=== PATIENT | male | born 1955 ===

== ENCOUNTER 2024-12-13 14:23 | Inpatient (IN) | payer MEDICARE ==
[~2024-12-13] VITALS: Ht 185.4 cm; Wt 98.4 kg
[2024-12-13] MEDS: DEXTROSE 50%-WATER 25 GM/50 ML SYRINGE IVP ONE ×4 (15:15→23:11)
[2024-12-13 15:50] LABS: PLATELET COUNT (AUTO) 154 K/uL (150-450); RED BLOOD CELL COUNT(AUTO) 5.41 MIL/uL (4.50-5.90); RED CELL DISTRIBUTION WIDTH 17.3 % (11.5-14.5); WHITE BLOOD COUNT (AUTO) 8.3 K/uL (4.5-11.0)
[2024-12-13 15:58] LABS: CALCIUM, TOTAL 8.7 mg/dL (8.8-10.5); CREATININE 1.48 mg/dL (0.60-1.30); GLOMERULAR FILTR. RATE CALC 47 mL/min (>60); SODIUM SERUM 142 mmol/L (136-145); UREA NITROGEN, BLOOD 53 mg/dL (7-18)
[2024-12-13 16:01] LABS: ASPARTATE AMINOTRANSFERASE 54.0 U/L (15-37); CREATINE KINASE, TOTAL ONLY 300.0 U/L (39-308); TOTAL PROTEIN, SERUM 6.0 g/dL (6.4-8.2)
[2024-12-13 16:10] LABS: GLUCOSE,RANDOM 33 mg/dL (70-110)
[2024-12-13 16:13] LABS: TROPONIN I-HIGH SENSITIVITY 118 ng/L (<76)
[2024-12-13] MEDS ORDERED: SODIUM CHLORIDE 0.9% 1,000 ML IV ONE (16:15)
[2024-12-13 17:26] LABS: GLUCOMETER DEV NAME(LOC) ER.7; GLUCOSE,POINT OF CARE 75 MG/DL (70-110)
[2024-12-13 17:40] LABS: CALCIUM, TOTAL 8.3 mg/dL (8.8-10.5); CREATININE 1.71 mg/dL (0.60-1.30); GLOMERULAR FILTR. RATE CALC 40.0 mL/min (>60); GLUCOSE,RANDOM 56.0 mg/dL (70-110); SODIUM SERUM 142.0 mmol/L (136-145); UREA NITROGEN, BLOOD 56.0 mg/dL (7-18)
[2024-12-13 17:50] LABS: TROPONIN I-HIGH SENSITIVITY 95 ng/L (<76)
[2024-12-13 17:52] LABS: LACTIC ACID 3.2 mmol/L (0.4-2.0)
[2024-12-13 17:55] LABS: ALCOHOL, BLOOD (SERUM) < 3 mg/dL (0-10)
[2024-12-13 18:00] LABS: GLUCOMETER DEV NAME(LOC) ER.7; GLUCOSE,POINT OF CARE 62 MG/DL (70-110)
[2024-12-13] MEDS ORDERED: BISACODYL 10 MG RECTAL RECTAL SUPPOSITORY PR PRN (18:00)
[2024-12-13] MEDS ORDERED: MAGNESIUM HYDROXIDE SUSPENSION 30 ML UDCUP PO PRN (18:00)
[2024-12-13] MEDS ORDERED: ONDANSETRON HCL 4 MG/2 ML VIAL IVP PRN (18:00)
[2024-12-13 18:31] LABS: GLUCOMETER DEV NAME(LOC) ER.7; GLUCOSE,POINT OF CARE 118 MG/DL (70-110)
[2024-12-13] MEDS: SODIUM CHLORIDE 0.9% 1,000 ML IV ONE (19:35)
[2024-12-13 19:36] LABS: GLUCOMETER DEV NAME(LOC) ER.7; GLUCOSE,POINT OF CARE 64 MG/DL (70-110)
[2024-12-13] MEDS: CefTRIAXone 1 GM/DEXTROSE 50 ML IV ONE (19:38)
[2024-12-13 20:46] LABS: GLUCOMETER DEV NAME(LOC) ER.7; GLUCOSE,POINT OF CARE 94 MG/DL (70-110)
[2024-12-13] MEDS: SODIUM CHLORIDE 77 MEQ in DEXTROSE 10%-WATER 1,000 ML IV ONE (20:50)
[2024-12-13 22:15] LABS: GLUCOMETER DEV NAME(LOC) ER.7; GLUCOSE,POINT OF CARE 91 MG/DL (70-110)
[2024-12-13 23:11] LABS: GLUCOMETER DEV NAME(LOC) ER.7; GLUCOSE,POINT OF CARE 65 MG/DL (70-110)
[2024-12-13 23:23] LABS: ABG BASE EXCESS -15.9 mmol/L (-2.0-3.0); ABG CARBOXYHEMOGLOBIN 1.2 % (0.5-1.5); ABG HCO3 14.6 mmol/L (21.0-28.0); ABG METHEMOGLOBIN 0.8 % (0.0-1.5); ABG OXYGEN CONTENT 23.0 mL/dL (15.0-23.0); ABG OXYGEN SATURATION 98.6 % (94.0-98.0); ABG OXYHEMOGLOBIN 96.6 % (94.0-98.0); ABG PCO2 21 mmHg (32.0-48.0); ABG PH 7.317 (7.350-7.450); ABG TOTAL HEMOGLOBIN 16.8 G/dL (13.5-17.5); FRACTIONATED INSPIRED OXYGEN 32.0 % (21-100.0); PO2, ARTERIAL BG 124.1 mmHg (83.0-108.0); SOURCE, BLOOD GAS ARTERIAL; TEMPERATURE, FAHRENHEIT, BG 98.3 FAHREN (96.0-98.6)
[2024-12-13 23:24] LABS: ABG A-A DIFF O2 80.3 mmHg (10-20.0); ALLEN TEST, BLOOD GAS Positive; FLOW, BLOOD GAS 3.00 L/min (0.00-15.00); O2 DEVICE,BLOOD GAS CANNULA (ROOM AIR); SITE, BLOOD GAS LFT RADIAL
[2024-12-13] MEDS: HEPARIN SODIUM,PORCINE 5,000 UNITS/ML VIAL SQ SCH (23:55)
[2024-12-14] VITALS (9 sets, daily range): BP systolic 95–115; BP diastolic 51–76; PULSE 62–144; RESP 14–29; TEMP 94–98.1; O2SAT 90–100
[2024-12-14 00:06] LABS: GLUCOMETER DEV NAME(LOC) ER.7; GLUCOSE,POINT OF CARE 131 MG/DL (70-110)
[2024-12-14 05:50] LABS: PLATELET COUNT (AUTO) 119 K/uL (150-450); RED BLOOD CELL COUNT(AUTO) 4.55 MIL/uL (4.50-5.90); RED CELL DISTRIBUTION WIDTH 16.6 % (11.5-14.5); WHITE BLOOD COUNT (AUTO) 6.0 K/uL (4.5-11.0)
[2024-12-14 05:52] LABS: CALCIUM, TOTAL 7.8 mg/dL (8.8-10.5); CREATININE 1.42 mg/dL (0.60-1.30); GLOMERULAR FILTR. RATE CALC 49.0 mL/min (>60); GLUCOSE,RANDOM 96.0 mg/dL (70-110); SODIUM SERUM 144.0 mmol/L (136-145); UREA NITROGEN, BLOOD 57.0 mg/dL (7-18)
[2024-12-14 06:57] LABS: APPEARANCE,URINE HAZY (CLEAR); GLUCOSE, URINE (UA) NEGATIVE (NEGATIVE); LEUKOCYTE ESTERASE ,URINE TRACE (NEGATIVE); NITRATE,URINE NEGATIVE (NEGATIVE); OCCULT BLOOD,URINE NEGATIVE (NEGATIVE); SPECIFIC GRAVITIY, URINE 1.027 (1.003-1.030)
[2024-12-14 07:17] LABS: SULFOSALICYLIC ACID,URINE 2+ (Negative)
[2024-12-14 07:19] LABS: FINE GRANULAR CASTS,URINE 0-2 /LPF (None Seen); SQUAMOUS EPITHELIAL CELL,UR Moderate /LPF (None Seen)
[2024-12-14] MEDS: PANTOPRAZOLE SODIUM 40 MG DR TABLET PO SCH (08:14)
[2024-12-14 08:56] LABS: GLUCOMETER DEV NAME(LOC) ICU.S7; GLUCOSE,POINT OF CARE 82 MG/DL (70-110)
[2024-12-14 08:56] LABS: GLUCOMETER DEV NAME(LOC) ICU.S7; GLUCOSE,POINT OF CARE 87 MG/DL (70-110)
[2024-12-14 08:56] LABS: GLUCOMETER DEV NAME(LOC) ICU.S7; GLUCOSE,POINT OF CARE 79 MG/DL (70-110)
[2024-12-14 08:56] LABS: GLUCOMETER DEV NAME(LOC) ICU.S7; GLUCOSE,POINT OF CARE 93 MG/DL (70-110)
[2024-12-14] MEDS: ALBUTEROL SULFATE 2.5 MG/0.5 ML NEB SOLUTION NEB PRN (09:04)
[2024-12-14] MEDS: IPRATROPIUM BROMIDE 0.5 MG/2.5 ML NEB SOLUTION NEB PRN (09:04)
[2024-12-14] MEDS ORDERED: SODIUM CHLORIDE 0.9% 250 ML IV ONE (10:44)
[2024-12-14 11:06] LABS: GLUCOMETER DEV NAME(LOC) ICUN.7; GLUCOSE,POINT OF CARE 85 MG/DL (70-110)
[2024-12-14] MEDS: DEXTROSE 50%-WATER 25 GM/50 ML SYRINGE IVP PRN (11:09)
[2024-12-14 11:20] LABS: GLUCOMETER DEV NAME(LOC) ICU.S7; GLUCOSE,POINT OF CARE 29 MG/DL (70-110)
[2024-12-14] MEDS: PIPERACILLIN/TAZO 3.375 GM/D5W 50 ML IV SCH (11:54)
[2024-12-14] MEDS: DEXTROSE 10%-WATER 1,000 ML IV SCH (12:04)
[2024-12-14 12:05] LABS: GLUCOMETER DEV NAME(LOC) ICU.S7; GLUCOSE,POINT OF CARE 100 MG/DL (70-110)
[2024-12-14] MEDS: VANCOMYCIN 1.25 GM/WATER(PEG) 250 ML IV ONE (12:56)
[2024-12-14] MEDS ORDERED: CLON-592 PO (13:19)
[2024-12-14] MEDS ORDERED: TRAZ150T80 PO (13:19)
[2024-12-14] MEDS ORDERED: LORA1TAB25 PO (13:19)
[2024-12-14] MEDS ORDERED: LAMO-24 PO (13:19)
[2024-12-14] MEDS ORDERED: GLIM2TAB35 PO (13:19)
[2024-12-14] MEDS ORDERED: ERGO500054 PO (13:19)
[2024-12-14] MEDS ORDERED: ARIP10TA38 PO (13:19)
[2024-12-14] MEDS ORDERED: LEVO50 PO (13:19)
[2024-12-14] MEDS ORDERED: APIX2.5T PO (13:19)
[2024-12-14] MEDS ORDERED: SERT-158 PO (13:19)
[2024-12-14] MEDS ORDERED: ATEN-73 PO (13:19)
[2024-12-14] MEDS ORDERED: LACT10SO85 PO (13:19)
[2024-12-14] MEDS ORDERED: CHOL25TA4 PO (13:19)
[2024-12-14] MEDS ORDERED: GABA-1181 PO (13:19)
[2024-12-14 13:25] LABS: GLUCOMETER DEV NAME(LOC) ICUN.7; GLUCOSE,POINT OF CARE 102 MG/DL (70-110)
[2024-12-14] MEDS: LORazepam 2 MG/ML VIAL IVP ONE (13:38)
[2024-12-14 15:21] LABS: GLUCOMETER DEV NAME(LOC) ICUN.7; GLUCOSE,POINT OF CARE 95 MG/DL (70-110)
[2024-12-14 16:31] LABS: GLUCOMETER DEV NAME(LOC) ICUN.7; GLUCOSE,POINT OF CARE 86 MG/DL (70-110)
[2024-12-14 17:20] LABS: GLUCOMETER DEV NAME(LOC) ICUN.7; GLUCOSE,POINT OF CARE 79 MG/DL (70-110)
[2024-12-14 18:20] LABS: GLUCOMETER DEV NAME(LOC) ICUN.7; GLUCOSE,POINT OF CARE 109 MG/DL (70-110)
[2024-12-14 19:26] LABS: GLUCOMETER DEV NAME(LOC) ICUN.7; GLUCOSE,POINT OF CARE 89 MG/DL (70-110)
[2024-12-14] MEDS: VANCOMYCIN 750 MG/WATER(PEG) 150 ML IV SCH (19:59)
[2024-12-14] MEDS: TraZODone HCL 150 MG TABLET PO SCH (20:31)
[2024-12-14] MEDS: APIXABAN 2.5 MG TABLET PO SCH (20:31)
[2024-12-14] MEDS: LACTULOSE 20 GM/30 ML SOLUTION UDCUP PO SCH (20:31)
[2024-12-14 22:36] LABS: GLUCOMETER DEV NAME(LOC) ICUN.7; GLUCOSE,POINT OF CARE 100 MG/DL (70-110)
[2024-12-14 22:36] LABS: GLUCOMETER DEV NAME(LOC) ICUN.7; GLUCOSE,POINT OF CARE 110 MG/DL (70-110)
[2024-12-14 22:36] LABS: GLUCOMETER DEV NAME(LOC) ICUN.7; GLUCOSE,POINT OF CARE 104 MG/DL (70-110)
[2024-12-14] MEDS ORDERED: 0.9% SODIUM CHLORIDE 5 ML NEB SOLUTION NEB ONE (22:51)
[2024-12-15] VITALS (7 sets, daily range): BP systolic 93–124; BP diastolic 51–94; PULSE 101–139; RESP 12–27; TEMP 96.2–97.4; O2SAT 94–96
[2024-12-15] MEDS: LORazepam 2 MG/ML VIAL IVP ONE (01:38)
[2024-12-15 03:20] LABS: GLUCOMETER DEV NAME(LOC) ICU.S7; GLUCOSE,POINT OF CARE 95 MG/DL (70-110)
[2024-12-15 03:20] LABS: GLUCOMETER DEV NAME(LOC) ICU.S7; GLUCOSE,POINT OF CARE 84 MG/DL (70-110)
[2024-12-15 03:20] LABS: GLUCOMETER DEV NAME(LOC) ICU.S7; GLUCOSE,POINT OF CARE 118 MG/DL (70-110)
[2024-12-15 04:11] LABS: GLUCOMETER DEV NAME(LOC) ICUN.7; GLUCOSE,POINT OF CARE 99 MG/DL (70-110)
[2024-12-15 04:11] LABS: GLUCOMETER DEV NAME(LOC) ICUN.7; GLUCOSE,POINT OF CARE 108 MG/DL (70-110)
[2024-12-15] MEDS: LEVOTHYROXINE SODIUM 50 MCG TABLET PO SCH (05:43)
[2024-12-15 06:06] LABS: GLUCOMETER DEV NAME(LOC) ICU.S7; GLUCOSE,POINT OF CARE 98 MG/DL (70-110)
[2024-12-15 06:06] LABS: GLUCOMETER DEV NAME(LOC) ICU.S7; GLUCOSE,POINT OF CARE 105 MG/DL (70-110)
[2024-12-15 06:06] LABS: GLUCOMETER DEV NAME(LOC) ICU.S7; GLUCOSE,POINT OF CARE 81 MG/DL (70-110)
[2024-12-15 06:06] LABS: GLUCOMETER DEV NAME(LOC) ICU.S7; GLUCOSE,POINT OF CARE 83 MG/DL (70-110)
[2024-12-15] MEDS: CHOLECALCIFEROL (VIT D3) 2,000 UNITS [50 MCG] TABLET PO SCH (09:00)
[2024-12-15] MEDS: SERTRALINE HCL 50 MG TABLET PO SCH (09:00)
[2024-12-15] MEDS: GABAPENTIN 300 MG CAPSULE PO SCH (09:00)
[2024-12-15 12:11] LABS: GLUCOMETER DEV NAME(LOC) ICU.S7; GLUCOSE,POINT OF CARE 69 MG/DL (70-110)
[2024-12-15 12:11] LABS: GLUCOMETER DEV NAME(LOC) ICU.S7; GLUCOSE,POINT OF CARE 132 MG/DL (70-110)
[2024-12-15 12:30] LABS: GLUCOMETER DEV NAME(LOC) ICUN.7; GLUCOSE,POINT OF CARE 130 MG/DL (70-110)
[2024-12-15 13:40] LABS: GLUCOMETER DEV NAME(LOC) ICUN.7; GLUCOSE,POINT OF CARE 66 MG/DL (70-110)
[2024-12-15 14:06] LABS: GLUCOMETER DEV NAME(LOC) ICUN.7; GLUCOSE,POINT OF CARE 104 MG/DL (70-110)
[2024-12-15 14:16] LABS: ASPARTATE AMINOTRANSFERASE 65.0 U/L (15-37); CALCIUM, TOTAL 7.5 mg/dL (8.8-10.5); CREATININE 1.36 mg/dL (0.60-1.30); GLOMERULAR FILTR. RATE CALC 52.0 mL/min (>60); GLUCOSE,RANDOM 110.0 mg/dL (70-110); SODIUM SERUM 143.0 mmol/L (136-145); TOTAL PROTEIN, SERUM 5.1 g/dL (6.4-8.2); UREA NITROGEN, BLOOD 51.0 mg/dL (7-18)
[2024-12-15 16:41] LABS: GLUCOMETER DEV NAME(LOC) ICU.S7; GLUCOSE,POINT OF CARE 101 MG/DL (70-110)
[2024-12-15 17:30] LABS: GLUCOMETER DEV NAME(LOC) ICUN.7; GLUCOSE,POINT OF CARE 80 MG/DL (70-110)
[2024-12-15 17:31] LABS: GLUCOMETER DEV NAME(LOC) ICUN.7; GLUCOSE,POINT OF CARE 92 MG/DL (70-110)
[2024-12-15 18:25] LABS: GLUCOMETER DEV NAME(LOC) ICU.S7; GLUCOSE,POINT OF CARE 98 MG/DL (70-110)
[2024-12-15] MEDS: ZOLPIDEM TARTRATE 5 MG TABLET PO PRN (20:29)
[2024-12-15 20:31] LABS: GLUCOMETER DEV NAME(LOC) ICU.S7; GLUCOSE,POINT OF CARE 70 MG/DL (70-110)
[2024-12-16] VITALS (8 sets, daily range): BP systolic 109–133; BP diastolic 54–97; PULSE 98–136; RESP 20–27; TEMP 93–99.3; O2SAT 92–100
[2024-12-16 01:31] LABS: GLUCOMETER DEV NAME(LOC) ICUN.7; GLUCOSE,POINT OF CARE 95 MG/DL (70-110)
[2024-12-16 02:11] LABS: GLUCOMETER DEV NAME(LOC) ICU.S7; GLUCOSE,POINT OF CARE 83 MG/DL (70-110)
[2024-12-16 04:12] LABS: CREATININE,URINE RANDOM 108.3 mg/dL (30.0-125.0); PROTEIN,URINE RANDOM 122.0 mg/dL (0-11.9)
[2024-12-16 05:45] LABS: GLUCOMETER DEV NAME(LOC) ICU.S7; GLUCOSE,POINT OF CARE 118 MG/DL (70-110)
[2024-12-16 06:05] LABS: PLATELET COUNT (AUTO) 118 K/uL (150-450); RED BLOOD CELL COUNT(AUTO) 5.05 MIL/uL (4.50-5.90); RED CELL DISTRIBUTION WIDTH 17.6 % (11.5-14.5); WHITE BLOOD COUNT (AUTO) 6.6 K/uL (4.5-11.0)
[2024-12-16 06:26] LABS: ASPARTATE AMINOTRANSFERASE 82.0 U/L (15-37); CALCIUM, TOTAL 7.9 mg/dL (8.8-10.5); CREATININE 1.29 mg/dL (0.60-1.30); GLOMERULAR FILTR. RATE CALC 55.0 mL/min (>60); GLUCOSE,RANDOM 149.0 mg/dL (70-110); SODIUM SERUM 136.0 mmol/L (136-145); TOTAL PROTEIN, SERUM 5.7 g/dL (6.4-8.2); UREA NITROGEN, BLOOD 47.0 mg/dL (7-18)
[2024-12-16 07:00] LABS: GLUCOMETER DEV NAME(LOC) ICUN.7; GLUCOSE,POINT OF CARE 137 MG/DL (70-110)
[2024-12-16 08:56] LABS: GLUCOMETER DEV NAME(LOC) ICUN.7; GLUCOSE,POINT OF CARE 112 MG/DL (70-110)
[2024-12-16 10:41] LABS: GLUCOMETER DEV NAME(LOC) ICUN.7; GLUCOSE,POINT OF CARE 132 MG/DL (70-110)
[2024-12-16 13:07] LABS: C-PEPTIDE SERUM 1.6 ng/mL (1.1-4.4)
[2024-12-16 13:26] LABS: GLUCOMETER DEV NAME(LOC) ICU.S7; GLUCOSE,POINT OF CARE 155 MG/DL (70-110)
[2024-12-16 17:10] LABS: GLUCOMETER DEV NAME(LOC) ICUN.7; GLUCOSE,POINT OF CARE 126 MG/DL (70-110)
[2024-12-16 17:10] LABS: GLUCOMETER DEV NAME(LOC) ICU.S7; GLUCOSE,POINT OF CARE 134 MG/DL (70-110)
[2024-12-16 18:45] LABS: GLUCOMETER DEV NAME(LOC) ICUN.7; GLUCOSE,POINT OF CARE 135 MG/DL (70-110)
[2024-12-16 22:35] LABS: GLUCOMETER DEV NAME(LOC) ICUN.7; GLUCOSE,POINT OF CARE 111 MG/DL (70-110)
[2024-12-16] MEDS: DIGOXIN 250 MCG/ML 2 ML AMP IVP ONE (23:36)
[2024-12-17] VITALS: BP 98/81; PULSE 127; RESP 14; TEMP 98.5; O2SAT 100
[2024-12-17 00:11] LABS: GLUCOMETER DEV NAME(LOC) ICUN.7; GLUCOSE,POINT OF CARE 127 MG/DL (70-110)
[2024-12-17 03:31] LABS: GLUCOMETER DEV NAME(LOC) ICU.S7; GLUCOSE,POINT OF CARE 137 MG/DL (70-110)
[2024-12-17 04:00] VITALS: BP 108/62; PULSE 82; RESP 14; TEMP 98.6; O2SAT 91
[2024-12-17 05:08] LABS: COMPLEMENT C3 62 mg/dL (82-167); COMPLEMENT C4 10 mg/dL (12-38); IGA (IFE) 210 mg/dL (61-437); IGM (IMMUNOFIXATION) 81 mg/dL (20-172)
[2024-12-17 05:42] LABS: PLATELET COUNT (AUTO) 106 K/uL (150-450); RED BLOOD CELL COUNT(AUTO) 4.70 MIL/uL (4.50-5.90); RED CELL DISTRIBUTION WIDTH 17.2 % (11.5-14.5); WHITE BLOOD COUNT (AUTO) 8.3 K/uL (4.5-11.0)
[2024-12-17 05:43] LABS: CALCIUM, TOTAL 7.7 mg/dL (8.8-10.5); CREATININE 1.09 mg/dL (0.60-1.30); GLOMERULAR FILTR. RATE CALC > 60 mL/min (>60); GLUCOSE,RANDOM 124 mg/dL (70-110); SODIUM SERUM 141 mmol/L (136-145); UREA NITROGEN, BLOOD 38 mg/dL (7-18)
[2024-12-17 06:01] LABS: GLUCOMETER DEV NAME(LOC) ICUN.7; GLUCOSE,POINT OF CARE 114 MG/DL (70-110)
[2024-12-17 07:06] LABS: GLUCOMETER DEV NAME(LOC) ICU.S7; GLUCOSE,POINT OF CARE 127 MG/DL (70-110)
[2024-12-17] MEDS ORDERED: SODIUM CHLORIDE 0.9% 250 ML IV ONE (08:13)
[2024-12-17 10:11] LABS: GLUCOMETER DEV NAME(LOC) ICU.S7; GLUCOSE,POINT OF CARE 92 MG/DL (70-110)
[2024-12-17 11:20] LABS: GLUCOMETER DEV NAME(LOC) ICUN.7; GLUCOSE,POINT OF CARE 112 MG/DL (70-110)
[2024-12-17 12:00] VITALS: BP 147/106; PULSE 101; RESP 16; O2SAT 99
[2024-12-17 14:21] LABS: GLUCOMETER DEV NAME(LOC) ICU.S7; GLUCOSE,POINT OF CARE 111 MG/DL (70-110)
[2024-12-17 16:00] VITALS: BP 116/73; RESP 17
[2024-12-17 17:35] LABS: GLUCOMETER DEV NAME(LOC) ICU.S7; GLUCOSE,POINT OF CARE 103 MG/DL (70-110)
[2024-12-17 20:00] VITALS: BP 149/70; PULSE 96; RESP 13; TEMP 97.4; O2SAT 95
[2024-12-17 20:45] LABS: GLUCOMETER DEV NAME(LOC) ICU.S7; GLUCOSE,POINT OF CARE 100 MG/DL (70-110)
[2024-12-17 20:50] LABS: GLUCOMETER DEV NAME(LOC) ICUN.7; GLUCOSE,POINT OF CARE 113 MG/DL (70-110)
[2024-12-17 22:41] LABS: GLUCOMETER DEV NAME(LOC) ICUN.7; GLUCOSE,POINT OF CARE 92 MG/DL (70-110)
[2024-12-18] VITALS (7 sets, daily range): BP systolic 115–142; BP diastolic 49–112; PULSE 97–129; RESP 18–23; TEMP 97.8–98.5; O2SAT 93–97
[2024-12-18 00:11] LABS: GLUCOMETER DEV NAME(LOC) ICUN.7; GLUCOSE,POINT OF CARE 107 MG/DL (70-110)
[2024-12-18 04:31] LABS: GLUCOMETER DEV NAME(LOC) ICU.S7; GLUCOSE,POINT OF CARE 89 MG/DL (70-110)
[2024-12-18 05:42] LABS: CALCIUM, TOTAL 8.3 mg/dL (8.8-10.5); CREATININE 1.07 mg/dL (0.60-1.30); GLOMERULAR FILTR. RATE CALC > 60 mL/min (>60); GLUCOSE,RANDOM 96 mg/dL (70-110); SODIUM SERUM 141 mmol/L (136-145); UREA NITROGEN, BLOOD 35 mg/dL (7-18)
[2024-12-18 06:45] LABS: GLUCOMETER DEV NAME(LOC) ICU.S7; GLUCOSE,POINT OF CARE 97 MG/DL (70-110)
[2024-12-18 09:21] LABS: GLUCOMETER DEV NAME(LOC) ICU.S7; GLUCOSE,POINT OF CARE 84 MG/DL (70-110)
[2024-12-18 12:51] LABS: GLUCOMETER DEV NAME(LOC) ICUN.7; GLUCOSE,POINT OF CARE 129 MG/DL (70-110)
[2024-12-18 12:55] LABS: GLUCOMETER DEV NAME(LOC) ICU.S7; GLUCOSE,POINT OF CARE 123 MG/DL (70-110)
[2024-12-18 16:31] LABS: GLUCOMETER DEV NAME(LOC) ICU.S7; GLUCOSE,POINT OF CARE 124 MG/DL (70-110)
[2024-12-18] MEDS ORDERED: SODIUM CHLORIDE 0.9% 250 ML IV ONE (18:00)
[2024-12-19] VITALS (11 sets, daily range): BP systolic 117–132; BP diastolic 50–104; PULSE 49–120; RESP 18–22; TEMP 97.3–98.2; O2SAT 95–100
[2024-12-19 09:18] LABS: CALCIUM, TOTAL 8.6 mg/dL (8.8-10.5); CREATININE 1.13 mg/dL (0.60-1.30); GLOMERULAR FILTR. RATE CALC > 60 mL/min (>60); GLUCOSE,RANDOM 94 mg/dL (70-110); SODIUM SERUM 144 mmol/L (136-145); UREA NITROGEN, BLOOD 40 mg/dL (7-18)
[2024-12-19 10:16] LABS: GLUCOMETER DEV NAME(LOC) ICUN.7; GLUCOSE,POINT OF CARE 158 MG/DL (70-110)
[2024-12-19 22:56] LABS: GLUCOMETER DEV NAME(LOC) 5N.1D; GLUCOSE,POINT OF CARE 103 MG/DL (70-110)
[2024-12-19 22:56] LABS: GLUCOMETER DEV NAME(LOC) 5N.1D; GLUCOSE,POINT OF CARE 105 MG/DL (70-110)
[2024-12-19 22:56] LABS: GLUCOMETER DEV NAME(LOC) 5N.1D; GLUCOSE,POINT OF CARE 122 MG/DL (70-110)
[2024-12-19 22:56] LABS: GLUCOMETER DEV NAME(LOC) 5N.1D; GLUCOSE,POINT OF CARE 132 MG/DL (70-110)
[2024-12-19 22:56] LABS: GLUCOMETER DEV NAME(LOC) 5N.1D; GLUCOSE,POINT OF CARE 131 MG/DL (70-110)
[2024-12-19 23:46] LABS: GLUCOMETER DEV NAME(LOC) 5S.1E; GLUCOSE,POINT OF CARE 120 MG/DL (70-110)
[2024-12-20] VITALS (18 sets, daily range): BP systolic 103–161; BP diastolic 60–102; PULSE 80–130; RESP 18–28; TEMP 97.3–98.8; O2SAT 94–100
[2024-12-20 06:13] LABS: CALCIUM, TOTAL 9.0 mg/dL (8.8-10.5); CREATININE 1.26 mg/dL (0.60-1.30); GLOMERULAR FILTR. RATE CALC 57.0 mL/min (>60); GLUCOSE,RANDOM 85.0 mg/dL (70-110); SODIUM SERUM 147.0 mmol/L (136-145); UREA NITROGEN, BLOOD 51.0 mg/dL (7-18)
[2024-12-20] MEDS: DEXTROSE 5%-WATER 250 ML IV ONE (10:32)
[2024-12-20 10:56] LABS: ABG BASE EXCESS -7.3 mmol/L (-2.0-3.0); ABG CARBOXYHEMOGLOBIN 1.2 % (0.5-1.5); ABG HCO3 19.5 mmol/L (21.0-28.0); ABG METHEMOGLOBIN 0.2 % (0.0-1.5); ABG OXYGEN CONTENT 21.4 mL/dL (15.0-23.0); ABG OXYGEN SATURATION 97.6 % (94.0-98.0); ABG OXYHEMOGLOBIN 96.2 % (94.0-98.0); ABG PCO2 33 mmHg (32.0-48.0); ABG PH 7.364 (7.350-7.450); ABG TOTAL HEMOGLOBIN 15.8 G/dL (13.5-17.5); FLOW, BLOOD GAS 2.00 L/min (0.00-15.00); FRACTIONATED INSPIRED OXYGEN 28.0 % (21-100.0); O2 DEVICE,BLOOD GAS CANNULA (ROOM AIR); PO2, ARTERIAL BG 95.7 mmHg (83.0-108.0); SITE, BLOOD GAS LFT BRACHIAL; SOURCE, BLOOD GAS ARTERIAL; TEMPERATURE, FAHRENHEIT, BG 97.3 FAHREN (96.0-98.6)
[2024-12-20] MEDS: IPRATROPIUM BROMIDE 0.5 MG/2.5 ML NEB SOLUTION NEB SCH (15:19)
[2024-12-20] MEDS: ALBUTEROL SULFATE 2.5 MG/0.5 ML NEB SOLUTION NEB SCH (15:19)
[2024-12-20 17:20] LABS: GLUCOMETER DEV NAME(LOC) 5S.1E; GLUCOSE,POINT OF CARE 117 MG/DL (70-110)
[2024-12-20 17:50] LABS: GLUCOMETER DEV NAME(LOC) 5N.1D; GLUCOSE,POINT OF CARE 189 MG/DL (70-110)
[2024-12-20 18:07] LABS: BETA-HYDROXBUTYRIC ACID 0.4 mg/dL
[2024-12-20] MEDS: BUDESONIDE 0.5 MG/2 ML NEB SOLUTION NEB SCH (20:07)
[2024-12-20 20:11] LABS: GLUCOMETER DEV NAME(LOC) 5S.1E; GLUCOSE,POINT OF CARE 102 MG/DL (70-110)
[2024-12-21] VITALS (21 sets, daily range): BP systolic 111–123; BP diastolic 86–109; PULSE 57–192; RESP 20–24; TEMP 97.3–97.7; O2SAT 87–100
[2024-12-21 05:45] LABS: GLUCOMETER DEV NAME(LOC) 5N.1D; GLUCOSE,POINT OF CARE 180 MG/DL (70-110)
[2024-12-21] MEDS: DIGOXIN 250 MCG/ML 2 ML AMP IVP ONE (08:09)
[2024-12-21] MEDS: ERGOCALCIFEROL (VIT D2) 50,000 UNITS [1,250 MCG] CAPSULE PO SCH (08:12)
[2024-12-21 08:40] LABS: RED BLOOD CELL COUNT(AUTO) 5.11 MIL/uL (4.50-5.90); RED CELL DISTRIBUTION WIDTH 18.9 % (11.5-14.5); WHITE BLOOD COUNT (AUTO) 10.4 K/uL (4.5-11.0)
[2024-12-21 08:44] LABS: CALCIUM, TOTAL 8.9 mg/dL (8.8-10.5); CREATININE 1.65 mg/dL (0.60-1.30); GLOMERULAR FILTR. RATE CALC 41.0 mL/min (>60); GLUCOSE,RANDOM 96.0 mg/dL (70-110); SODIUM SERUM 147.0 mmol/L (136-145); UREA NITROGEN, BLOOD 60.0 mg/dL (7-18)
[2024-12-21] MEDS ORDERED: ERGOCALCIFEROL (VIT D2) 50,000 UNITS [1,250 MCG] CAPSULE PO SCH (09:00)
[2024-12-21 09:04] LABS: PLATELET COUNT (AUTO) 85 K/uL (150-450)
[2024-12-21 10:06] LABS: GLUCOMETER DEV NAME(LOC) 5N.2C; GLUCOSE,POINT OF CARE 103 MG/DL (70-110)
[2024-12-21] MEDS: AMIODARONE HCL 150 MG in DEXTROSE 5%-WATER 97 ML IV ONE (11:00)
[2024-12-21] MEDS: AMIODARONE HCL 360 MG in DEXTROSE 5%-WATER 242.8 ML IV ONE (11:25)
[2024-12-21] MEDS: PIPERACILLIN/TAZO 3.375 GM/D5W 50 ML IV SCH (12:56)
[2024-12-21] MEDS: AMIODARONE HCL 540 MG in DEXTROSE 5%-WATER 250 ML IV ONE (16:36)
[2024-12-21] MEDS: ACETAMINOPHEN 325 MG TABLET PO PRN (16:52)
[2024-12-21] MEDS: FUROSEMIDE 40 MG/4 ML VIAL IVP SCH (20:19)
[2024-12-21 20:30] LABS: GLUCOMETER DEV NAME(LOC) 5N.1D; GLUCOSE,POINT OF CARE 143 MG/DL (70-110)
[2024-12-21 20:30] LABS: GLUCOMETER DEV NAME(LOC) 5N.1D; GLUCOSE,POINT OF CARE 127 MG/DL (70-110)
[2024-12-22] VITALS (18 sets, daily range): BP systolic 92–132; BP diastolic 54–104; PULSE 66–121; RESP 20–24; TEMP 97.2–98.2; O2SAT 90–100
[2024-12-22 05:50] LABS: GLUCOMETER DEV NAME(LOC) 5N.1D; GLUCOSE,POINT OF CARE 106 MG/DL (70-110)
[2024-12-22] MEDS: AMIODARONE HCL 750 MG in DEXTROSE 5%-WATER 485 ML IV SCH (10:57)
[2024-12-22 12:51] LABS: GLUCOMETER DEV NAME(LOC) 5N.1D; GLUCOSE,POINT OF CARE 114 MG/DL (70-110)
[2024-12-22] MEDS: AMIODARONE HCL 200 MG TABLET PO SCH (13:52)
[2024-12-22 23:56] LABS: GLUCOMETER DEV NAME(LOC) 5N.1D; GLUCOSE,POINT OF CARE 131 MG/DL (70-110)
[2024-12-22 23:56] LABS: GLUCOMETER DEV NAME(LOC) 5N.1D; GLUCOSE,POINT OF CARE 111 MG/DL (70-110)
[2024-12-23] VITALS (12 sets, daily range): BP systolic 128–139; BP diastolic 78–93; PULSE 67–110; RESP 20–24; TEMP 97.5–98.4; O2SAT 95–99
[2024-12-23 09:21] LABS: GLUCOMETER DEV NAME(LOC) 5S.2E; GLUCOSE,POINT OF CARE 133 MG/DL (70-110)
[2024-12-23 12:11] LABS: GLUCOMETER DEV NAME(LOC) 5S.2E; GLUCOSE,POINT OF CARE 137 MG/DL (70-110)
[2024-12-24] VITALS (7 sets, daily range): BP systolic 95–138; BP diastolic 66–97; PULSE 70–98; RESP 18–20; TEMP 97.3–97.7; O2SAT 93–98
[2024-12-24 06:46] LABS: GLUCOMETER DEV NAME(LOC) 5S.2E; GLUCOSE,POINT OF CARE 111 MG/DL (70-110)
== END 2024-12-24 10:30 | DRG 637 ==
LOC: EMS 14:23 → EDH 16:58 → ICU 12-14 02:10 → 5S 12-18 17:46
PROVIDERS: ADMIT Hospitalist; ATTEND Hospitalist
PROC: 05HB33Z Insertion of Infusion Device into Right Basilic Vein, Percutaneous Approach (ICD-10-PCS; principal; 2024-12-15)
DX: E11.649 Type 2 diabetes mellitus with hypoglycemia without coma (principal); G93.41 Metabolic encephalopathy; I50.21 Acute systolic (congestive) heart failure; J96.01 Acute respiratory failure with hypoxia; J69.0 Pneumonitis due to inhalation of food and vomit; E87.0 Hyperosmolality and hypernatremia; I42.9 Cardiomyopathy, unspecified; F03.93 Unspecified dementia, unspecified severity, with mood disturbance; J44.1 Chronic obstructive pulmonary disease with (acute) exacerbation; I13.0 Hypertensive heart and chronic kidney disease with heart failure and stage 1 through stage 4 chronic kidney disease, or unspecified chronic kidney disease; N17.9 Acute kidney failure, unspecified; N18.9 Chronic kidney disease, unspecified; D69.6 Thrombocytopenia, unspecified; E11.22 Type 2 diabetes mellitus with diabetic chronic kidney disease; F32.A Depression, unspecified; I08.1 Rheumatic disorders of both mitral and tricuspid valves; I48.0 Paroxysmal atrial fibrillation; F25.9 Schizoaffective disorder, unspecified; F41.9 Anxiety disorder, unspecified; E55.9 Vitamin D deficiency, unspecified; E03.9 Hypothyroidism, unspecified; Z79.01 Long term (current) use of anticoagulants; Z79.84 Long term (current) use of oral hypoglycemic drugs; Z79.899 Other long term (current) drug therapy
CPT/HCPCS: 36569; 70450; 71045; 71250; 76700; 76937; 80048; 80053; 80076; 80202; 81001; 81002; 82010; 82024; 82533; 82550; 82570; 82784; 82805; 82948; 82962; 83036; 83525; 83605; 83735; 83880; 84156; 84166; 84443; 84484; 84681; 85025; 85610; 85730; 86160; 86162; 86334; 87040; 87070; 87077; 87081; 87086; 87186; 87205; 92526; 92610; 93005; 93306; 93880; 93970; 94640; 94760; 97163; 97167; 97530; 97535; 99285; G0378; G0480; J0282; J0696; J1160; J1644; J1938; J2060; J2543; J2919; J7050; J7060; J7131; 36415-L1; 36415-TC; J7613